=== PATIENT | male | born 1970 | race Caucasian/White ===

== ENCOUNTER 2016-11-15 17:29 | Emergency (ER) | payer BC, OTHER ==
[~2016-11-15] VITALS: Ht 157.5 cm; Wt 120.0 kg
[~2016-11-15 17:29] MED LIST: IBUP400T20 PO; Z.0.NO CURRENT MEDS
[2016-11-15 17:32] VITALS: BP 138/68; PULSE 75; RESP 16; TEMP 98.6
[2016-11-15] MEDS ORDERED: ROBA500T PO (17:57)
--- NOTE | 2016-11-15 17:58 | PD ---
HPI Chief Complaint: Back/ Neck Pain or Injury Time Seen by Provider: 17:54 Travel History International Travel<30 days: No Contact w/Intl Traveler<30days: No Traveled to known affect area: No History of Present Illness HPI 46-year-old male presents emergency department for evaluation of right low back pain. Times one day. Patient reports yesterday while getting into his boat he felt a sharp pain in his right low back. When he awoke this morning he says pain has intensified making it difficult to this turn, twist, and bend. He denies numbness/tingling/weakness in the extremities. He denies fever or chills , incontinence or urinary symptoms. Pain improves with rest. Pain severity 4/ 10. PFSH Past Medical History Medical History: Denies Significant Hx Diminished Hearing: No Sleep Apnea: Yes (USES CPAP) Tetanus Vaccination: < 5 Years Influenza Vaccination: No Past Surgical History Eye Surgery: Yes (LASIK) Other Surgery: Yes (VASECTOMY) Social History Alcohol Use: Yes (Occ.) Tobacco Use: Yes (1 PPD) Substance Use: No Allergies-Medications (Allergen,Severity, Reaction): Coded Allergies: No Known Allergies (Verified , 11/15/16) Reported Meds & Prescriptions Reported Meds & Active Scripts Active Robaxin (Methocarbamol) 500 Mg Tab 500 Mg PO TID PRN Review of Systems Except as stated in HPI: all other systems reviewed are Neg Physical Exam Narrative GENERAL: [Alert, well-appearing male in no acute distress] SKIN: Focused skin assessment warm/dry. HEAD: Atraumatic. Normocephalic. EYES: Pupils equal and round. No scleral icterus. No injection or drainage. ENT: No nasal bleeding or discharge. Mucous membranes pink and moist. NECK: Trachea midline. No JVD. CARDIOVASCULAR: Regular rate and rhythm. No murmur appreciated. RESPIRATORY: No accessory muscle use. Clear to auscultation. Breath sounds equal bilaterally. GASTROINTESTINAL: Abdomen soft, non-tender, nondistended. Hepatic and splenic margins not palpable. MUSCULOSKELETAL: No obvious deformities. No clubbing. No cyanosis. No edema. NEUROLOGICAL: Awake and alert. No obvious cranial nerve deficits. Motor grossly within normal limits. Normal speech. 5 out of 5 strength in lower extremity. Normal sensation. Dorsiflex and plantarflex intact. PSYCHIATRIC: Appropriate mood and affect; insight and judgment normal. BACK: No CVA tenderness. No rash. No point tenderness on palpation of the spine. TTP right lumbar paraspinous muscles Data Data Last Documented VS Vital Signs Date Time Temp Pulse Resp B/P Pulse Ox O2 Delivery O2 Flow Rate FiO2 11/15/16 17:32 98.6 75 16 138/68 Orders Ketorolac Inj (Toradol Inj) (11/15/16 18:00) Orphenadrine Inj (Norflex Inj) (11/15/16 18:00) MDM Medical Decision Making Medical Screen Exam Complete: Yes Emergency Medical Condition: Yes Differential Diagnosis Lumbar strain, sciatica, herniated disc Narrative Course 46-year-old male with chief complaint of right low back pain times one day. His physical exam is reassuring. His symptoms and exam are consistent with right lumbar strain. He has a normal neurologic exam. Patient will be treated with Toradol and Norflex and reassess. Diagnosis Primary Impression: Lumbar strain Qualified Code: S39.012A - Strain of lumbar region, initial encounter Referrals: Primary Care Physician Departure Forms: Tests/Procedures, Work Release Enter return to work date: Nov 17, 2016 Additional Instructions: Take [id number] Motrin [id number] milligrams every 6-8 hours as needed for pain. Take the muscle relaxers as needed for muscle spasm. Avoid heavy lifting or strenuous activity until back pain is resolved. Follow-up with her primary care doctor. Return to emergency department if he developed new or worsening symptoms. Scripts Methocarbamol (Robaxin)500 Mg Vsr011 Mg PO TID PRN (MUSCLE SPASM) #12 TAB Prov:Shanice Rhodes 11/15/16 Disposition: 01 DISCHARGE HOME Condition: Stable Shanice Rhodes Nov 15, 2016 17:58
[2016-11-15] MEDS ORDERED: ORPHENADRINE INJ 60 MG/2 ML AMP IM ONE (18:00)
[2016-11-15] MEDS ORDERED: KETOROLAC TROMETHAMINE 60 MG/2 ML (IM) VIAL IM ONE (18:00)
== END 2016-11-15 18:50 | disposition home or self-care (01) ==
LOC: PHEFT 17:29
DX: S39.012A Strain of muscle, fascia and tendon of lower back, initial encounter (principal); G47.30 Sleep apnea, unspecified; F17.200 Nicotine dependence, unspecified, uncomplicated; X58.XXXA Exposure to other specified factors, initial encounter; Y92.814 Boat as the place of occurrence of the external cause
CPT/HCPCS: 96372; 99284; J1885; J2360